=== PATIENT | female | born 1950 | race Caucasian/White ===

== ENCOUNTER 2019-06-25 20:41 | Emergency (ER) | payer MEDICARE, OTHER ==
[~2019-06-25] VITALS: Ht 157.5 cm; Wt 62.6 kg
[2019-06-25] MEDS ORDERED: BENTYL 10 MG CA10 M1 PO (20:51)
[2019-06-25] MEDS ORDERED: ZETIA10 MG PO (20:53)
[2019-06-25] MEDS ORDERED: LUNESTA3 MG PO (20:53)
[2019-06-25] MEDS ORDERED: HYDROCODON-ACE1 EAC7 PO (21:29)
[2019-06-25] MEDS ORDERED: VALIUM5 MG PO (21:29)
[2019-06-25 21:41] VITALS: BP 152/57
== END 2019-06-25 21:42 | disposition home or self-care (01) ==
LOC: M.ERS 20:41
DX: M54.41 Lumbago with sciatica, right side (principal); M54.42 Lumbago with sciatica, left side; I10 Essential (primary) hypertension; E78.00 Pure hypercholesterolemia, unspecified; K58.9 Irritable bowel syndrome, unspecified; Z90.49 Acquired absence of other specified parts of digestive tract; Z88.0 Allergy status to penicillin

== ENCOUNTER 2019-10-29 22:58 | Emergency (ER) | payer MEDICARE, OTHER ==
[~2019-10-29] VITALS: Ht 157.5 cm; Wt 62.1 kg
[~2019-10-29 22:58] MED LIST: BENTYL 10 MG CA10 M1 PO; HYDROCODON-ACE1 EAC7 PO; LUNESTA3 MG PO; VALIUM5 MG PO; ZETIA10 MG PO
[2019-10-29] MEDS ORDERED: KLOR-CON 10 ER10 MEQ PO (23:04)
[2019-10-29] MEDS ORDERED: VALSARTAN160 MG PO (23:04)
[2019-10-29] MEDS ORDERED: FENOFIBRATE150 MG PO (23:05)
[2019-10-29] MEDS ORDERED: LUNESTA3 MG PO (23:05)
[2019-10-29] MEDS ORDERED: FENOFIBRATE160 MG PO (23:05)
[2019-10-29] MEDS ORDERED: VITAMIN D32000 UNI2 PO (23:06)
[2019-10-29] MEDS ORDERED: CRANBERRY 12,61 EACH PO (23:06)
[2019-10-29] MEDS ORDERED: PROTONIX 20 MG20 M1 PO (23:07)
[2019-10-29 23:32] LABS: ABSOLUTE BASOPHILS 0.1 thou/uL (0.0-0.2); ABSOLUTE EOSINOPHILS 0.1 thou/uL (0.0-0.7); ABSOLUTE LYMPHOCYTES 2.2 thou/uL (0.8-5.3); ABSOLUTE MONOCYTES 0.4 thou/uL (0.0-1.2); ABSOLUTE NEUTROPHILS 2.7 thou/uL (1.6-8.1); BASOPHILS 1.5 %; EOSINOPHILS 1.7 %; HEMATOCRIT 35.1 % (37.0-47.0); HEMOGLOBIN 12.5 gm/dL (12.0-15.0); LYMPHOCYTES 40.5 %; MCH 34.3 pg (26.0-34.0); MCHC 35.5 g/dL (28.0-37.0); MCV 96.6 fL (80.0-100.0); MONOCYTES 7.3 %; MPV 8.5 fl. (7.2-11.1); NUCLEATED RBCS 0 /100WBC; PLATELET COUNT* 227 thou/uL (150-400); RBC 3.64 mil/uL (4.20-5.00); RDW-CV 12.5 % (10.5-14.5); WBC 5.4 thou/uL (4.0-11.0)
[2019-10-29 23:39] LABS: CALCIUM 8.5 mg/dL (8.5-10.1); CREATININE 1.2 mg/dL (0.6-1.3); POTASSIUM 3.1 mmol/L (3.5-5.1)
[2019-10-29 23:43] LABS: INR 1.1; PROTIME 11.2 Seconds (9.20-11.50)
[2019-10-29 23:50] LABS: TOTAL BILIRUBIN 0.2 mg/dL (<0.1-1.0); TOTAL PROTEIN 6.8 g/dL (6.4-8.2)
[2019-10-30 01:36] VITALS: BP 128/64
--- NOTE | 2019-10-30 10:38 | EKG ---
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: ME : 1950 Requested By: Amanda Alexis Order Number: [id number] MD: Michael Jaeger Measurements Intervals [place] Rate: 78 P: 44 ID: [id number] QRS: 7 QRSD: 102 T: 24 QT: 407 QTc: 464 Interpretive Statements Sinus rhythm Borderline T abnormalities, anterior leads No previous ECG available for comparison Electronically Signed On 10-30-2019 10:37:42 CARD PAINTER by Michael Jaeger [email or web address] <ELECTRONICALLY SIGNED> By: Belkis Jaeger MD, [facility] 10/30/19 1037 [id number] Belkis Jaeger MD, FACC /EPI
== END 2019-10-30 01:36 | disposition home or self-care (01) ==
LOC: M.ERS 22:58
PROVIDERS: Emergency Medicine
DX: E87.6 Hypokalemia (principal); E83.42 Hypomagnesemia; I10 Essential (primary) hypertension; E78.00 Pure hypercholesterolemia, unspecified; K58.9 Irritable bowel syndrome, unspecified; Z90.49 Acquired absence of other specified parts of digestive tract; Z88.0 Allergy status to penicillin